=== PATIENT | male | born 1990 | race African-American/Black ===

== ENCOUNTER 2016-09-26 11:24 | Emergency (ER) | payer SELFPAY ==
[2016-09-26] MEDS ORDERED: Sodium Chloride 0.9% 10 ML Syringe FLUSH PRN (11:28)
[2016-09-26] MEDS ORDERED: ceFAZolin 2 GM in Premix Bag 1 BAG IV ONE (11:29)
[2016-09-26] MEDS ORDERED: Lactated Ringers 1,000 ML IV SCH (11:30)
[2016-09-26] MEDS ORDERED: HYDROmorphone 0.5 MG/0.5 ML Syringe IVPUSH ONE (11:45)
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
[2016-09-26] MEDS ORDERED: HYDROmorphone 1 MG/ML Syringe IVPUSH ONE (12:27)
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
== END 2016-09-26 15:00 | disposition home or self-care (01) ==
LOC: JD.ED 11:24
DX: S81.842A Puncture wound with foreign body, left lower leg, initial encounter (principal); S82.255B Nondisplaced comminuted fracture of shaft of left tibia, initial encounter for open fracture type I or II; W32.0XXA Accidental handgun discharge, initial encounter
CPT/HCPCS: 36415; 73590; 80053; 85025; 96361; 96365; 96375; 99285; J0690; J1170; J7050; J7120; 51702; 99284